=== PATIENT | female | born 1955 | race Caucasian/White ===

== ENCOUNTER → 2019-05-17 | Outpatient (CLI) | payer MEDICARE ==
--- NOTE | 2019-05-20 11:37 | MM ---
Reason for exam: additional evaluation requested from prior study. Last mammogram was performed 1 year and 1 month ago. History: Patient is postmenopausal, has history of breast cancer at age 62, and is nulliparous. Malignant US biopsy breast VAD RT of the right breast, April 13, 2017. 2 mastectomies of the right breast, 2017. 2 chemotherapies, 2017. 2 cyst aspirations of the left breast. Taking antineoplastic for 2 years beginning at age 62. Physical Findings: Nurse Summary: small pea size round movable nodule right axilla (nurse mj). MG 3D Diag Mammo W/Cad LT CC, MLO, LM, and spot compression MLO view(s) were taken of the left breast. Prior study comparison: April 23, 2018, left breast MG 3d diag mammo w/cad LT. April 13, 2017, right breast MG diagnostic mammo RT wo CAD. The breast tissue is heterogeneously dense. This may lower the sensitivity of mammography. Inferior central asymmetric density left MLO does not persist on spot 3D MLO or 3D lateral. These results were verbally communicated with the patient and result sheet given to the patient on 05/17/19. ASSESSMENT: Incomplete: need additional imaging evaluation, BI-RAD 0 RECOMMENDATION: Ultrasound. (right axillary palpable felt by the nurse)
--- NOTE | 2019-05-20 11:39 | USB ---
Reason for exam: additional evaluation requested from abnormal screening. History: Patient is postmenopausal, has history of breast cancer at age 62, and is nulliparous. Malignant US biopsy breast VAD RT of the right breast, April 13, 2017. 2 mastectomies of the right breast, 2017. 2 chemotherapies, 2017. 2 cyst aspirations of the left breast. Taking antineoplastic for 2 years beginning at age 62. US Breast Axilla RT Right limited breast ultrasound including focal area of concern, retroareolar and axilla demonstrates a 0.4 x 0.4cm round, solid possible node at the axilla. These results were verbally communicated with the patient and result sheet given to the patient on 05/17/19. ASSESSMENT: Suspicious, BI-RAD 4 RECOMMENDATION: Ultrasound core biopsy of the right breast. Called Dr. Garcia with mammographic findings and has scheduled an appointment for the patient for 06/05/19 at 3:[address] Reis. Right axilla biopsy scheduled for 05/24/19 at 10 o'clock. PRELIMINARY REPORT CALLED AND FAXED TO DR. REIS ON 05/17/19.
== END | disposition home or self-care (01) ==
LOC: MERGE 04-24 11:00 → RADMAMWWP 12:54
PROVIDERS: ATTEND Family Medicine
DX: R92.8 Other abnormal and inconclusive findings on diagnostic imaging of breast (principal)
CPT/HCPCS: 77065; 76642; G0279; 77061

== ENCOUNTER 2019-05-22 08:22 | Day surgery (SDC) | payer MEDICARE ==
[2019-05-22 09:13] VITALS: TEMP 98.2
[2019-05-22 11:10] VITALS: BP 129/81; PULSE 70; RESP 14
--- NOTE | 2019-05-22 11:46 | US ---
ULTRASOUND GUIDED CORE BIOPSY RIGHT AXILLARY LYMPH NODE: CLINICAL HISTORY: Abnormal ultrasound FINDINGS: The procedure was explained to the patient. The risks, complications, benefits and alternatives were discussed and any questions were answered. Informed consent was obtained. Patient was placed supin e on the ultrasound table and prepped and draped in the usual sterile fashion. Utilizing a 18 gauge needle, five passes were made into the requested right axillary lymph node. Clip was placed post proc edure. Patient was stable throughout the procedure. Pathology is pending. All elements of maximal barrier and sterile technique were utilized. IMPRESSION: 1. Successful ultrasound guided core biopsy right axillary lymph node.
== END 2019-05-22 10:45 | disposition home or self-care (01) ==
LOC: RADPROMAIN 08:22
PROVIDERS: ATTEND Surgery
DX: R94.8 Abnormal results of function studies of other organs and systems (principal); L90.5 Scar conditions and fibrosis of skin
CPT/HCPCS: 88305; 76942; 38505; A4648

== ENCOUNTER → 2019-11-18 | Outpatient (CLI) | payer MEDICARE ==
--- NOTE | 2019-11-18 11:15 | USB ---
Reason for exam: follow-up at short interval from prior study. History: Patient is postmenopausal, has history of breast cancer at age 62, and is nulliparous. Malignant US biopsy breast VAD RT of the right breast, April 13, 2017. 2 mastectomies of the right breast, 2017. 2 chemotherapies, 2017. 2 cyst aspirations of the left breast. Taking antineoplastic for 2 years beginning at age 62. Physical Findings: Nurse did not find any significant physical abnormalities on exam. US Breast Axilla RT Right breast axilla ultrasound demonstrates no cystic or solid lesion seen. Clip noted from prior biopsy. Morphologically normal appearing nonenlarged right axillary lymph nodes. These results were verbally communicated with the patient and result sheet given to the patient on 11/18/19. ASSESSMENT: Benign, BI-RAD 2 RECOMMENDATION: Routine screening mammogram of both breasts in 6 months. Back on schedule for May 2020.
== END | disposition home or self-care (01) ==
LOC: RADUSWWP 09:32
PROVIDERS: ATTEND Surgery
DX: C50.911 Malignant neoplasm of unspecified site of right female breast (principal)

== ENCOUNTER → 2019-11-29 | Outpatient (CLI) | payer MEDICARE ==
--- NOTE | 2019-11-29 15:52 | CTL ---
EXAMINATION TYPE: CT Low Dose Lung DATE OF EXAM ORDERED: 11/29/2019 HISTORY: . Lung cancer screening CT DLP: 50.[address] CTDI: 1.5 mGy Automated exposure control for dose reduction was used. SCREENING VISIT: Subsequent COMPARISON: 11/01/2018 TECHNIQUE: Low dose computed tomography scan was performed through the chest at 1 mm thick sections a nd reconstructed images in the coronal plane at [address] DIAGNOSTIC QUALITY: Satisfactory FINDINGS: LUNG NODULES: Present, detailed below: Previous reference lesion posterior lateral left lower lobe, series 4 image 232 measures 0.3 cm and a ppears stable. Subtle groundglass opacities in the posterior lateral right lung base measuring 1.4 cm. This appears to been present previously. Some stable apical thickening is present at the bilateral lung apices. Emphysematous blebs are along the medial lung apices. Some emphysematous changes present. LUNGS: COPD: Severity: Mild Fibrosis: Severity: None Lymph nodes: None Other findings: None RIGHT PLEURAL SPACE: Effusion: None Calcification: None Thickening: None Pneumothorax: None LEFT PLEURAL SPACE: Effusion: None Calcification: None Thickening: None Pneumothorax: None HEART: Heart Size: Normal Coronary calcification: Mild Pericardial effusion: None OTHER FINDINGS: Upper abdomen: Normal Bony thorax: Normal Supraclavicular region: Normal Other: Ascending thoracic aorta at the level the main pulmonary artery measures 3.9 cm. The main pul monary artery at the bifurcation measures 2.5 cm. IMPRESSION: 1. Probably benign findings. FOLLOW UP CT CHEST RECOMMENDATION: Yes, short-term. Follow-up chest CT in 6 months to reevaluate groundglass opacity right lung CT LUNG RAD: Lung rad 3
== END | disposition home or self-care (01) ==
LOC: RADCTMAIN 13:55
PROVIDERS: ATTEND Family Medicine
DX: Z12.2 Encounter for screening for malignant neoplasm of respiratory organs (principal); F17.210 Nicotine dependence, cigarettes, uncomplicated
CPT/HCPCS: 77080

== ENCOUNTER → 2020-07-07 | Outpatient (CLI) | payer MEDICARE ==
[2020-07-07 08:46] LABS: African American GFR (CKD) >90 (>60 ml/min/1.73 sqM); Blood Urea Nitrogen 10 mg/dL (7-17); Non-African American GFR(CKD) >90 (>60 ml/min/1.73 sqM)
--- NOTE | 2020-07-07 09:55 | CT ---
EXAMINATION TYPE: CT chest w con DATE OF EXAM: 07/07/2020 COMPARISON: Low-dose lung screening CT November 29, 2019 and older study November 01, 2018. HISTORY: Follow up prior abnormal CT CT DLP: 147.5 mGycm. Automated Exposure Control for Dose Reduction was Utilized. TECHNIQUE: CT scan of the thorax is performed following with IV Contrast, patient injected with 100 mL of Isovue 300. FINDINGS: LUNGS: Background Moderate underlying emphysematous changes are redemonstrated. Stable 1.2 cm focus o f groundglass opacity right lower lobe axial image 44. Few scattered micronodules redemonstrated. No new or enlarging greater than 4 mm pulmonary nodules. No pleural effusion or pneumothorax seen bilate rally. Mild linear scarring and/or atelectasis in the bases anteriorly near the diaphragm redemonstra adair. MEDIASTINUM: There are no greater than 1 cm hilar or mediastinal lymph nodes. No cardiomegaly or pe ricardial effusion is seen. Coronary artery calcification redemonstrated. Ascending aorta measures u p to 3.6 cm in diameter image 28 not significantly changed from prior studies. OTHER: Right breast noted surgically absent. Slight scoliotic curvature upper thoracic spine redemons trated. IMPRESSION: Overall stable findings, moderate emphysematous change without new or enlarging nodules.
== END | disposition home or self-care (01) ==
LOC: RADCTMAIN 07:38
PROVIDERS: ATTEND Family Medicine
DX: J43.9 Emphysema, unspecified (principal); Z72.0 Tobacco use
CPT/HCPCS: 82565; 84520; 71260; 36415; Q9967

== ENCOUNTER → 2020-08-04 | Outpatient (CLI) | payer MEDICARE ==
--- NOTE | 2019-11-29 15:32 | BD ---
EXAMINATION TYPE: Axial Bone Density DATE OF EXAM: 11/29/2019 COMPARISON: NONE CLINICAL HISTORY: M [age] Height: 63 IN Weight: 122 LBS FRAX RISK QUESTIONS: Alcohol (3 or more units per day): YES Family History (Parent hip fracture): YES MOTHER Secondary Osteoporosis: 3. Menopause before 45: PARTIAL HYST AGE 35 Current Tobacco Use: YES RISK FACTORS HISTORY OF: Family History of Osteoporosis: YES MOTHER Active: YES Postmenopausal woman: PARTIAL HYST AGE 35 MEDICATIONS: Thyroid Medications: YES Which medication: Levothyroxine How Lon+ YEARS Osteoporosis Medications: YES Which medication: Prolia How Lon YEAR Additional Medications: CALCIUM, PROLIA, THYROID MEDS, VIT D, PAXIL, HORMONE INHIBITOR ARIMIDEX Additional History: BREAST CANCER WITH CHEMO EXAM MEASUREMENTS: Bone mineral densitometry was performed using the [employer] System. Bone mineral density as measured about the Lumbar spine is: ----- L1-L4(G/cm2): 0.949 T Score Values are as follows: ----- L2: -2.7 ----- L3: -1.6 ----- L4: -1.6 ----- L1-L4: -1.9 Bone mineral density BASELINE Bone mineral density about the R hip (g/cm2): 0.603 Bone mineral density about the L hip (g/cm2): 0.629 T Score values are as follows: -----R Neck: -3.1 -----L Neck: -2.9 -----R Total: -2.5 -----L Total: -2.5 Bone mineral density BASELINE IMPRESSION: Osteoporosis (T Score less than -2.5). There is increased fracture risk and therapy is usually indicated based on age. Re-Screen 1-2 years. NOTE: T-SCORE=SD OF THE YOUNG ADULT MEAN.
--- NOTE | 2020-08-04 14:34 | MM ---
Reason for exam: additional evaluation requested from prior study. Last mammogram was performed 1 year and 3 months ago. History: Patient is postmenopausal, has history of breast cancer at age 62, and is nulliparous. Malignant US biopsy breast VAD RT of the right breast, April 13, 2017. 2 mastectomies of the right breast, 2017. 2 chemotherapies, 2017. 2 cyst aspirations of the left breast. Taking antineoplastic for 2 years beginning at age 62. Physical Findings: Nurse did not find any significant physical abnormalities on exam. MG 3D Diag Mammo W/Cad LT CC and MLO view(s) were taken of the left breast. Prior study comparison: May 17, 2019, left breast MG 3d diag mammo w/cad LT. April 23, 2018, left breast MG 3d diag mammo w/cad LT. The breast tissue is heterogeneously dense. This may lower the sensitivity of mammography. Focal asymmetry lower inner quadrant. No significant new findings when compared with previous films. These results were verbally communicated with the patient and result sheet given to the patient on 08/04/20. ASSESSMENT: Benign, BI-RAD 2 RECOMMENDATION: Follow-up diagnostic mammogram of the left breast in 1 year.
== END | disposition home or self-care (01) ==
LOC: RADMAMWWP 11-29 14:10
PROVIDERS: ATTEND Surgery
DX: Z08 Encounter for follow-up examination after completed treatment for malignant neoplasm (principal); Z85.3 Personal history of malignant neoplasm of breast
CPT/HCPCS: 77065; G0279; 77061; 77080

== ENCOUNTER → 2020-09-14 | Outpatient (CLI) | payer MEDICARE ==
[~2020-09-14] MED LIST: SODIUM CHLORIDE 0.9% 500 ML 500 ML in EMPTY BAG 1 BAG IV PRN; ZOLEDRONIC ACID 5 MG in SODIUM CHLORIDE 0.9% 100 ML IV NR
[2020-09-14 13:43] VITALS: BP 146/89; PULSE 77; RESP 16; TEMP 98.2
== END | disposition home or self-care (01) ==
LOC: PROCWHC3 13:23
PROVIDERS: ATTEND Internal Medicine Hematology & Oncology
DX: M81.0 Age-related osteoporosis without current pathological fracture (principal)
CPT/HCPCS: 96365; J3489

== ENCOUNTER → 2021-09-03 | Outpatient (CLI) | payer MEDICARE ==
--- NOTE | 2021-09-03 11:28 | MM ---
Reason for exam: additional evaluation requested from prior study. Last mammogram was performed 1 year and 1 month ago. History: Patient is postmenopausal, has history of breast cancer at age 62, and is nulliparous. Malignant US biopsy breast VAD RT of the right breast, April 13, 2017. 2 mastectomies of the right breast, 2017. 2 chemotherapies, 2017. 2 cyst aspirations of the left breast. Took hormonal contraceptives for 3 years. Taking antineoplastic for 3 years beginning at age 62. Physical Findings: Nurse did not find any significant physical abnormalities on exam. MG 3D Diag Mammo W/Cad LT CC and MLO view(s) were taken of the left breast. Prior study comparison: August 04, 2020, left breast MG 3d diag mammo w/cad LT. May 17, 2019, left breast MG 3d diag mammo w/cad LT. The breast tissue is heterogeneously dense. This may lower the sensitivity of mammography. There is chronic nodularity in the left breast. There is no dominant lesion. No significant new findings when compared with previous films. These results were verbally communicated with the patient and result sheet given to the patient on 09/03/21. ASSESSMENT: Benign, BI-RAD 2 RECOMMENDATION: Follow-up diagnostic mammogram of the left breast in 1 year.
== END | disposition home or self-care (01) ==
LOC: RADMAMWWP 10:40
PROVIDERS: ATTEND Obstetrics & Gynecology
DX: Z85.3 Personal history of malignant neoplasm of breast (principal); R92.2 Inconclusive mammogram; Z78.0 Asymptomatic menopausal state
CPT/HCPCS: 77065; G0279; 77061

== ENCOUNTER → 2021-09-28 | Outpatient (CLI) | payer MEDICARE ==
--- NOTE | 2021-09-28 11:47 | CTL ---
EXAMINATION TYPE: CT Low Dose Lung DATE OF EXAM ORDERED: 09/28/2021 HISTORY: . Lung cancer screening CT DLP: 49.[address] CTDI: 1.3 mGy Automated exposure control for dose reduction was used. SCREENING VISIT: COMPARISON: 11/29/2019 TECHNIQUE: Low dose computed tomography scan was performed through the chest at 1 mm thick sections a nd reconstructed images in multiple planes at 1 mm and [address] DIAGNOSTIC QUALITY: Satisfactory FINDINGS: Stable 3 mm left lower lobe nodule. There is biapical pleural thickening is diffuse percentage changes. There is a 1 mm nodule in the rig ht upper lobe laterally which is retrospectively stable. Subpleural less than 5 mm pulmonary nodules which are stable. There is an additional 3 mm nodule imag e 74 within the right upper lobe is irregular 3 mm density left upper lobe is nonspecific and likely inflammatory. Subsegmental consolidation involving the lungs with no pleural effusion or pneumothorax. Atherosclerotic change aorta. Heart size normal. Coronary artery calcification noted. Mild ectasia or aneurysmal dilation of the ascending aorta measuring 3.7 cm. Atherosclerotic changes aorta. Correlat e for previous right-sided breast surgery. IMPRESSION: 1. Diffuse COPD with multiple sub-5 mm nodules too small to characterize. 2. Ectasia of the thoracic aorta measuring 3.7 cm. 3. Coronary artery calcification. CT LUNG RAD AND CT CHEST RECOMMENDATION: Lung-Rad 2 Benign Appearance or Behavior: Continue annual sc reening with LDCT in 12 months.
== END | disposition home or self-care (01) ==
LOC: RADCTMAIN 11:07
PROVIDERS: ATTEND Internal Medicine Hematology & Oncology
DX: Z12.2 Encounter for screening for malignant neoplasm of respiratory organs (principal); J44.9 Chronic obstructive pulmonary disease, unspecified; I25.10 Atherosclerotic heart disease of native coronary artery without angina pectoris; R91.8 Other nonspecific abnormal finding of lung field; I77.810 Thoracic aortic ectasia
CPT/HCPCS: 71271

== ENCOUNTER → 2021-12-21 | Outpatient (CLI) | payer MEDICARE ==
[2021-12-21 11:12] VITALS: BP 126/82; PULSE 84; RESP 18; TEMP 98.4
== END ==
LOC: PROCWHC3 10:52
PROVIDERS: ATTEND Internal Medicine Hematology & Oncology
DX: M81.0 Age-related osteoporosis without current pathological fracture (principal); F17.200 Nicotine dependence, unspecified, uncomplicated; Z88.0 Allergy status to penicillin
CPT/HCPCS: 96365; J3489

== ENCOUNTER → 2021-12-23 | Outpatient (CLI) | payer MEDICARE ==
--- NOTE | 2021-12-23 17:16 | BD ---
EXAMINATION TYPE: Axial Bone Density DATE OF EXAM: 12/23/2021 COMPARISON: 11.29.2019 CLINICAL HISTORY: 66 YR OLD FEMALE......ICD-10 CODE: Z79.890 MENOPAUSAL Height: 63 Weight: 110 FRAX RISK QUESTIONS: Family History (Parent hip fracture): YES Secondary Osteoporosis: YES 3. Menopause before 45: YES Current Tobacco Use: YES RISK FACTORS HISTORY OF: Family History of Osteoporosis: YES, MOTHER FOR HIP FX Postmenopausal woman: YES, HYST AT AGE 37 AND MENOPAUSE FOLLOWED Lost more than 2 inches in height since high school: YES Poor Health: CANCER Hyperparathyroidism: NO Adrenal Insufficiency: NO MEDICATIONS: Thyroid Medications: YES, SYNTHROID FOR 20 + YRS Osteoporosis Medications: INFUSION FOR BONE DENSITY, RECENT, ON OSTEOPOROSIS MEDS FOR 18 YRS Additional Medications: PAXIL, MASTECTOMY, RT BREAST CHEMO, ANTI-HORMONE, CHOLESTEROL MEDS, CALCIUM A ND VIT D WHEN THINKS OF IT, Additional History: HX OF RT BREAST CANCER, CHEMO, ANTI-HORMONE, CHOLESTEROL, ANXIETY EXAM MEASUREMENTS: Bone mineral densitometry was performed using the GL 2ours System. Bone mineral density as measured about the Lumbar spine is: ----- L1-L4(G/cm2): 0.907 T Score Values are as follows: ----- L1: -2.6 ----- L2: -3.0 ----- L3: -2.1 ----- L4: -1.8 ----- L1-L4: -2.3 Bone mineral density has: Decreased -3.5% SINCE: 11.29.2019 STUDY Bone mineral density about the R hip (g/cm2): 0.681 Bone mineral density about the L hip (g/cm2): 0.682 T Score values are as follows: -----R Neck: -3.3 -----L Neck: -3.1 -----R Total: -2.6 -----L Total: -2.6 Bone mineral density has: Decreased -1.9% SINCE: 11.29.2019 STUDY FRAX%S: THERE IS A 42.9% CHANCE FOR A MAJOR OSTEOPOROTIC FX AND A 28.8% FOR HER HIPS.....PROBABI LITY FOR FX IN 10 YRS TIME IMPRESSION: Osteoporosis (T Score less than -2.5). There is increased fracture risk and therapy is usually indicated based on age. Re-Screen 1-2 years. NOTE: T-SCORE=SD OF THE YOUNG ADULT MEAN.
== END | disposition home or self-care (01) ==
LOC: RADBDWWP 09:33
PROVIDERS: ATTEND Internal Medicine Hematology & Oncology
DX: M81.0 Age-related osteoporosis without current pathological fracture (principal); C50.111 Malignant neoplasm of central portion of right female breast; Z79.890 Hormone replacement therapy
CPT/HCPCS: 77080

== ENCOUNTER 2022-08-02 10:23 | Day surgery (SDC) | payer MEDICARE ==
[2022-07-29 12:06] VITALS: BMI 19.3
[~2022-08-02 10:23] MED LIST changes: +LACTATED RINGERS 1,000 ML IV SCH; -SODIUM CHLORIDE 0.9% 500 ML 500 ML in EMPTY BAG 1 BAG IV PRN; -ZOLEDRONIC ACID 5 MG in SODIUM CHLORIDE 0.9% 100 ML IV NR
[2022-08-02 10:59] VITALS: TEMP 97.9
[2022-08-02] MEDS ORDERED: LIDOCAINE 1% (10MG/ML) FOR IV START INTRADERMA ONE (11:05)
[2022-08-02] MEDS ORDERED: PROPOFOL 10 MG/ML 20 ML VIAL IV ONE (11:29)
--- NOTE | 2022-08-02 11:32 | P.GSHP ---
History of Present Illness H&P Date: 08/02/22 Chief Complaint: Change in bowel habits 67-year-old female with personal history of breast cancer. She is here today for colonoscopy. She has had some recent intermittent diarrhea. Last colonoscopy many years ago. No rectal bleeding. Past Medical History Past Medical History: Cancer, COPD, Thyroid Disorder Additional Past Medical History / Comment(s): rt breast CA, wt loss and frequent diarrhea, History of Any Multi-Drug Resistant Organisms: None Reported Past Surgical History: Breast Surgery, Hysterectomy Additional Past Surgical History / Comment(s): RT masectomy, Past Anesthesia/Blood Transfusion Reactions: Previous Problems w/ Anesthesia Additional Past Anesthesia/Blood Transfusion Reaction / Comment(s): "i was told I stopped breathing during my breast surgery"- 4 yrs ago, Smoking Status: Current every day smoker - Past Family History Mother Family Medical History: No Reported History Medications and Allergies Home Medications Medication Instructions Recorded Confirmed Type Anastrozole [Arimidex] 1 mg PO DAILY 05/21/19 07/29/22 History Atorvastatin [Lipitor] 40 mg PO DAILY 07/29/22 07/29/22 History Levothyroxine Sodium [Synthroid] 75 mcg PO DAILY 07/29/22 07/29/22 History Multivit-Min/FA/Lycopen/Lutein 1 each PO DAILY 07/29/22 07/29/22 History [Centrum Silver Tablet] PARoxetine HCL [Paxil] 30 mg PO DAILY 07/29/22 07/29/22 History Allergies Allergy/AdvReac Type Severity Reaction Status Date / Time Penicillins Allergy Rash/Hives Verified 08/02/22 10:50 Surgical - Exam Vital Signs Temp Pulse Resp BP Pulse Ox 97.9 F 81 16 109/68 96 08/02/22 10:56 08/02/22 10:56 08/02/22 10:56 08/02/22 10:56 08/02/22 10:56 Physical exam: General: Well-developed, well-nourished HEENT: Normocephalic, sclerae nonicteric Abdomen: Nontender, nondistended Extremities: No edema Neuro: Alert and oriented Assessment and Plan (1) Change in bowel habits Narrative/Plan: Will proceed with colonoscopy at this time Current Visit: Yes Status: Acute Code(s): R19.4 - CHANGE IN BOWEL HABIT SNOMED Code(s): 294972091
--- NOTE | 2022-08-02 11:54 | P.PCN ---
Date of Procedure: 08/02/22 Procedure(s) Performed: PREOPERATIVE DIAGNOSIS: Change in bowel habits POSTOPERATIVE DIAGNOSIS: Diverticulosis PROCEDURE: Colonoscopy ANESTHESIA: MAC SURGEON: Cong Reis M.D. SPECIMENS: None ENDOSCOPIC PROCEDURE: The patient was placed on the endoscopy table in the left decubitus position. The Olympus colonoscope was inserted into the anus and passed under direct visualization to the base of the cecum. The appendiceal orifice was visualized. From that point the scope was slowly withdrawn inspe cting all surfaces carefully. There were no neoplastic inflammatory or polypoid lesions throughout the cecum, ascending, transverse, descending, sigmoid and rectum. There was mild left-sided diverticulosis noted. The patient had significant tortuosity. Digital rectal examination was normal. The patient was taken to the recovery room in stable condition per anesthesia guidelines. RECOMMENDATIONS: Resume diet. Repeat colonoscopy 10 years.
[2022-08-02 12:24] VITALS: BP 137/81; PULSE 65; RESP 20
== END 2022-08-02 12:46 ==
LOC: ORWHC2ENDO 10:23
PROVIDERS: ATTEND Surgery
DX: K57.30 Diverticulosis of large intestine without perforation or abscess without bleeding (principal); R19.4 Change in bowel habit; E78.5 Hyperlipidemia, unspecified; J44.9 Chronic obstructive pulmonary disease, unspecified; R63.0 Anorexia; E07.9 Disorder of thyroid, unspecified; F17.200 Nicotine dependence, unspecified, uncomplicated; Z85.3 Personal history of malignant neoplasm of breast; Z90.710 Acquired absence of both cervix and uterus; Z90.11 Acquired absence of right breast and nipple; Z79.890 Hormone replacement therapy; Z79.899 Other long term (current) drug therapy; Z88.0 Allergy status to penicillin
CPT/HCPCS: G0121; J2704; 45378

== ENCOUNTER → 2022-09-29 | Outpatient (CLI) | payer MEDICARE ==
--- NOTE | 2022-09-29 12:53 | CTL ---
EXAMINATION TYPE: CT Low Dose Lung DATE OF EXAM ORDERED: 09/29/2022 HISTORY: . Lung cancer screening CT DLP: [address] CTDI: 1.53 mGy Automated exposure control for dose reduction was used. SCREENING VISIT: COMPARISON: 09/28/2021 TECHNIQUE: Low dose computed tomography scan was performed through the chest at 1 mm thick sections a nd reconstructed images in multiple planes at 1 mm and [address] DIAGNOSTIC QUALITY: Satisfactory FINDINGS: Stable 3 mm left lower lobe nodule stable. There is biapical pleural thickening is diffuse percentage changes. There is a 1 mm nodule in the right upper lobe laterally which is retrospectively stable. Subpleural less than 5 mm pulmonary nodules which are stable. There is an additional 3 mm nodule with in the right upper lobe. There is a 3 mm density left upper lobe is nonspecific and likely inflammatory. Subsegmental consolidation involving the lungs with no pleural effusion or pneumothorax. Atherosclerotic change aorta. Heart size normal. Coronary artery calcification noted. Mild ectasia di lation of the ascending aorta measuring 3.7 cm. Stable Atherosclerotic changes aorta. Correlate for previous right-sided breast surgery. Emphysematous lan es are noted. Osseous structures intact. Question new subareolar density left breast IMPRESSION: 1. COPD with stable 5 mm less pulmonary nodules unchanged from prior exam. 2. Question new subareolar left breast density recommend follow-up mammogram. 3. Coronary artery calcification. CT LUNG RAD AND CT CHEST RECOMMENDATION: Lung-Rad 2 Benign Appearance or Behavior: Continue annual sc reening with LDCT in 12 months. S Modifier (other clinically significant findings): S
== END | disposition home or self-care (01) ==
LOC: RADCTMAIN 10:31
PROVIDERS: ATTEND Family Medicine
DX: Z12.2 Encounter for screening for malignant neoplasm of respiratory organs (principal); J44.9 Chronic obstructive pulmonary disease, unspecified; R91.8 Other nonspecific abnormal finding of lung field; I25.10 Atherosclerotic heart disease of native coronary artery without angina pectoris; Z87.891 Personal history of nicotine dependence
CPT/HCPCS: 71271

== ENCOUNTER → 2022-10-11 | Outpatient (CLI) | payer MEDICARE ==
--- NOTE | 2022-10-11 14:10 | MM ---
Reason for Exam: Follow-up at short interval from prior study. Last mammogram was performed 1 year(s) and 1 month(s) ago. Patient History: Menarche at age 11. Patient has no children. Left ovary removed at age 62. Right ovary removed at age 62. Hysterectomy at age 39. Postmenopausal. Breast cancer, age 62. Previous chemotherapy at age 62. Patient used Hormonal Contraceptives for 3 years. 2017, Mastectomy on the Right side. Cyst Aspiration on the Left side. Cyst Aspiration on the Left side. 2017, Mastectomy on the Right side. 04/13/2017, Malignant Core Biopsy on the right side. 2017, Chemotherapy. 2017, Chemotherapy. Prior Study Comparison: 05/17/2019 Left Diagnostic Mammogram, [facility]. 08/04/2020 Left Diagnostic Mammogram, [facility]. 09/03/2021 Left Diagnostic Mammogram, [facility]. Tissue Density: Left: The breast tissue is heterogeneously dense. This may lower the sensitivity of mammography. Findings: Analyzed By CAD. There are scattered punctate calcifications through the anterior left breast, stable from comparison. Parenchymal pattern appears stable. No new nodules or interlobular masses are evident. Chronic nodularity is in the upper outer aspect left breast. Overall Assessment: Benign, BI-RAD 2 Management: Screening Mammogram of the left breast in 1 year. A clinical breast exam by your physician is recommended on an annual basis and results should be correlated with mammographic findings. This exam should not preclude additional follow-up of suspicious palpable abnormalities. Results were given to the patient verbally at the time of exam. Electronically signed and approved by: Josesito Patel D.O. Radiologis
== END | disposition home or self-care (01) ==
LOC: RADMAMWWP 08:15
PROVIDERS: ATTEND Family Medicine
DX: R92.8 Other abnormal and inconclusive findings on diagnostic imaging of breast (principal); Z78.0 Asymptomatic menopausal state; Z85.3 Personal history of malignant neoplasm of breast; Z98.890 Other specified postprocedural states
CPT/HCPCS: 77065; G0279; 77061

== ENCOUNTER → 2022-11-16 | Outpatient (CLI) | payer MEDICARE ==
--- NOTE | 2022-11-16 14:13 | CT ---
EXAMINATION TYPE: CT abdomen pelvis wo con DATE OF EXAM: 11/16/2022 COMPARISON: 04/05/2017 HISTORY: 67-year-old female R30.0, right sided abdominal pain CT DLP: 214.7 mGycm. Automated exposure control for dose reduction was used. TECHNIQUE: Contiguous axial scanning of the abdomen and pelvis without IV contrast. Coronal and sagit kranthi reconstructions performed. FINDINGS: Heart normal size without pericardial effusion. Emphysematous change in the lower lungs. No pleural e ffusion. Noncontrast appearance of the liver, adrenal glands, kidneys, spleen, and pancreas show no gross abno rmality. There is an underlying 1.5 cm diverticulum of the duodenum projecting into the pancreatic he ad region. Numerous fluid-filled small bowel loops throughout. Some are borderline distended up to 2.9 cm. Addit ionally, there are some segments in the mid and lower abdomen and pelvis that show moderate wall thic kening and some surrounding mesenteric edema/fat stranding, Normal appendix. Liquid stool within the right side of the colon. Redundant sigmoid colon with sigmoid diverticulosis. No definite acute diverticulitis is seen. No mesenteric or retroperitoneal lymphadenopathy identified. Bladder is nondistended. Uterus surgically absent. Numerous pelvic fluids. Neither ovary is identifie d. No abnormal fluid collection seen in the pelvis or pelvic lymphadenopathy. Bones: Mild degenerative disc disease and facet arthropathy lower lumbar spine. IMPRESSION: 1. Numerous fluid-filled small bowel loops throughout. Some are borderline distended up to 2.9 cm. A dditionally, some segments in the mid and lower abdomen show moderate wall thickening and some surrou nding inflammation. Correlate for a moderate infectious or inflammatory enteritis. Corresponding liqu id stool/diarrheal state in the right side of the colon. 2. Sigmoid diverticulosis. No definite findings of acute diverticulitis. 3. Normal appendix.
== END | disposition home or self-care (01) ==
LOC: RADCTMAIN 11:57
PROVIDERS: ATTEND Family Medicine
DX: K63.89 Other specified diseases of intestine (principal); K57.30 Diverticulosis of large intestine without perforation or abscess without bleeding; R30.0 Dysuria; R10.31 Right lower quadrant pain; M54.50 Low back pain, unspecified
CPT/HCPCS: 74176

== ENCOUNTER → 2023-02-27 | Outpatient (CLI) | payer MEDICARE ==
[~2023-02-27] MED LIST changes: -LACTATED RINGERS 1,000 ML IV SCH; +SODIUM CHLORIDE 0.9% 500 ML 500 ML in EMPTY BAG 1 BAG IV PRN; +ZOLEDRONIC ACID 5 MG in SODIUM CHLORIDE 0.9% 100 ML IV NR
[2023-02-27 10:37] VITALS: BP 134/86; PULSE 70; RESP 16; TEMP 97.5
== END ==
LOC: PROCWHC3 10:13
PROVIDERS: ATTEND Internal Medicine
DX: C50.111 Malignant neoplasm of central portion of right female breast (principal); F17.200 Nicotine dependence, unspecified, uncomplicated; M81.0 Age-related osteoporosis without current pathological fracture; Z88.0 Allergy status to penicillin
CPT/HCPCS: 96365; J3489

== ENCOUNTER → 2023-07-25 | Outpatient (CLI) | payer MEDICARE ==
[2023-07-25 16:38] LABS: Basophils # (A) 0.08 X 10*3/uL (0.00-0.10); Basophils % (A) 0.9 %; Eosinophils # (A) 0.05 X 10*3/uL (0.04-0.35); Eosinophils % (A) 0.5 %; HCT 48.6 % (37.2-46.3); HGB 15.9 d/dL (12.0-15.0); Lymphocytes # (A) 2.28 X 10*3/uL (0.90-5.00); Lymphocytes % (A) 24.5 %; MCH 31.5 pg (27.0-32.0); MCHC 32.7 d/dL (32.0-37.0); MCV 96.2 FL (80.0-97.0); Mean Platelet Volume 8.5 FL (9.5-12.2); Monocytes # (A) 0.84 X 10*3/uL (0.20-1.00); NRBC Per 100 WBC 0 X 10*3/uL (0.00-0.01); Neutrophils % (A) 64.5 %; Platelet Count 427 X 10*3/uL (140-440); RBC 5.05 X 10*6/uL (4.10-5.20); RDW 12.9 % (11.5-14.5); WBC 9.31 X 10*3/uL (4.50-10.00)
[2023-07-25 16:58] LABS: ALT 10 U/L (8-44); AST 12 U/L (13-35); Albumin 3.7 d/dL (3.8-4.9); Albumin/Globulin Ratio 1.32 Ratio (1.60-3.17); Alkaline Phosphatase 116 U/L (41-126); Calcium 8.8 mg/dL (8.7-10.3); Carbon Dioxide 28.9 mmol/L (21.6-31.8); Chloride 100 mmol/L (96-109); Chol/HDL Ratio 2.81 Ratio; Globulin 2.8 d/dL (1.6-3.3); Glucose 85 mg/dL (70-110); LDL Cholesterol,Calculated 34.6 mg/dL (0.0-131.0); Potassium 3.9 mmol/L (3.5-5.5); Sodium 141 mmol/L (135-145); Total Bilirubin 0.6 mg/dL (0.3-1.2); Total Protein 6.5 d/dL (6.2-8.2); VLDL Calculation 16.86 mg/dL (5.00-40.00)
[2023-07-25 17:18] LABS: Hepatitis A Antibody IgM Nonreactive; Hepatitis B Core IgM Nonreactive; Hepatitis B Surface Antigen Nonreactive; Hepatitis C IgG Antibody Nonreactive
== END | disposition home or self-care (01) ==
LOC: LABWHC1 08:53
PROVIDERS: ATTEND Family Medicine
DX: K52.9 Noninfective gastroenteritis and colitis, unspecified (principal); R63.4 Abnormal weight loss
CPT/HCPCS: 36415; 80053; 80061; 80074; 82306; 83036; 83516; 84443; 85025

== ENCOUNTER 2023-07-27 09:13 | Emergency (ER) | payer MEDICARE ==
[2023-07-27 09:58] LABS: ALT 13 U/L (4-34); AST 16 U/L (14-36); African American GFR (CKD) >90 (>60 ml/min/1.73 sqM); Albumin 3.3 g/dL (3.5-5.0); Alkaline Phosphatase 107 U/L (38-126); Anion Gap 8 mmol/L; Blood Urea Nitrogen 11 mg/dL (7-17); Calcium 8.7 mg/dL (8.4-10.2); Carbon Dioxide 31 mmol/L (22-30); Chloride 99 mmol/L (98-107); Glucose 95 mg/dL (74-99); Non-African American GFR(CKD) 83 (>60 ml/min/1.73 sqM); Potassium 3.3 mmol/L (3.5-5.1); Sodium 138 mmol/L (137-145); Total Bilirubin 0.8 mg/dL (0.2-1.3); Total Protein 6.8 g/dL (6.3-8.2)
[2023-07-27 10:03] LABS: Appearance,Urine Clear (Clear); Bacteria,Urine Rare /hpf; Bilirubin,Urine Negative (Negative); Blood,Urine Trace (Negative); Color,Urine Yellow; Glucose,Urine (UA) Negative (Negative); Granular Casts,Urine 1 /lpf (0); Hyaline Casts,Urine 1 /lpf (0-2); Ketones,Urine Negative (Negative); Leukocyte Esterase,Urine Small (Negative); Mucus,Urine Many /hpf; Nitrite,Urine Negative (Negative); PH, Urine 5.5 (5.0-8.0); Protein,Urine 1+ (Negative); RBC,Urine 3 /hpf (0-5); Specific Gravity,Urine 1.023 (1.001-1.035); Squamous Epithelial Cell,Urine 1 /hpf (0-4); WBC,Urine 5 /hpf (0-5)
[2023-07-27 10:06] LABS: Basophils % (A) 0 %; Eosinophils % (A) 0 %; HCT 49.1 % (34.0-46.0); HGB 16.7 gm/dL (11.4-16.0); Lymphocytes # (A) 2.2 k/uL (1.0-4.8); Lymphocytes % (A) 16 %; MCH 32.4 pg (25.0-35.0); MCHC 33.9 g/dL (31.0-37.0); MCV 95.5 fL (80.0-100.0); Mean Platelet Volume 6.8; Monocytes # (A) 0.8 k/uL (0-1.0); Monocytes % (A) 6 %; Neutrophils # (A) 10.4 k/uL (1.3-7.7); Neutrophils % (A) 77 %; Platelet Count 409 k/uL (150-450); RBC 5.14 m/uL (3.80-5.40); RDW 12.4 % (11.5-15.5); WBC 13.5 k/uL (3.8-10.6)
--- NOTE | 2023-07-27 10:06 | ED ---
Weakness HPI - General Source: patient, RN notes reviewed Mode of arrival: ambulatory Limitations: no limitations <Lowlel Pittman - Last Filed: 07/27/23 10:05> <Rebekah Kwan - Last Filed: 07/30/23 16:29> - General Chief complaint: Weakness Stated complaint: weakness/vomiting Time Seen by Provider: 07/27/23 10:05 - History of Present Illness Initial comments: 68-year-old female presents emergency departments for evaluation of petition weakness. Patient has been very fatigued, neck and throughout the day which is abnormal. Patient complained the mid to lower abdominal pain. Patient has a history of breast cancer. Patient denies any dysuria hematuria she has had slight nausea she also complains of some mild back aching this. (Lowell Pittman) 68 year old female with history of breast cancer in remission who presents with lower abdominal cramping and low back pain. No saddle anesthesia. Patient has had nausea and vomiting for the past 2 days. Has had dysuria without hematuria. No fevers. Had chronic diarrhea. No black or bloody stools. Denies fevers. No sick contacts. Breast cancer is in remission. No other alleviating, precipitating or modifying factors. (Rebekah Kwan) - Related Data Home Medications Medication Instructions Recorded Confirmed Anastrozole [Arimidex] 1 mg PO DAILY 05/21/19 07/27/23 Atorvastatin [Lipitor] 40 mg PO DAILY 07/29/22 07/27/23 Levothyroxine Sodium [Synthroid] 75 mcg PO DAILY 07/29/22 07/27/23 PARoxetine HCL [Paxil] 30 mg PO DAILY 07/29/22 07/27/23 Previous Rx's Medication Instructions Recorded Cephalexin [Keflex] 500 mg PO BID #14 cap 07/27/23 Allergies Allergy/AdvReac Type Severity Reaction Status Date / Time Penicillins Allergy Rash/Hives Verified 07/27/23 12:46 Review of Systems ROS Other: All systems not noted in ROS Statement are negative. <Lowell Pittman - Last Filed: 07/27/23 10:05> ROS Other: All systems not noted in ROS Statement are negative. <Rebekah Kwan - Last Filed: 07/30/23 16:29> ROS Statement: Those systems with pertinent positive or pertinent negative responses have been documented in the HPI. Past Medical History Past Medical History: Cancer, COPD, Thyroid Disorder Additional Past Medical History / Comment(s): rt breast CA, wt loss and frequent diarrhea, History of Any Multi-Drug Resistant Organisms: None Reported Past Surgical History: Breast Surgery, Hysterectomy Additional Past Surgical History / Comment(s): RT masectomy, Past Anesthesia/Blood Transfusion Reactions: Previous Problems w/ Anesthesia Additional Past Anesthesia/Blood Transfusion Reaction / Comment(s): "i was told I stopped breathing during my breast surgery"- 4 yrs ago, Past Psychological History: Anxiety Smoking Status: Current every day smoker Past Alcohol Use History: Occasional Past Drug Use History: None Reported - Past Family History Mother Family Medical History: No Reported History <Lowell Pittman - Last Filed: 07/27/23 10:05> General Exam Limitations: no limitations <Lowell Pittman - Last Filed: 07/27/23 10:05> General appearance: alert, in no apparent distress Head exam: Present: atraumatic, normocephalic, normal inspection Eye exam: Present: normal appearance, PERRL, EOMI. Absent: scleral icterus, conjunctival injection, periorbital swelling ENT exam: Present: normal exam, mucous membranes moist Neck exam: Present: normal inspection. Absent: tenderness, meningismus, lymphadenopathy Respiratory exam: Present: normal lung sounds bilaterally. Absent: respiratory distress, wheezes, rales, rhonchi, stridor Cardiovascular Exam: Present: regular rate, normal rhythm, normal heart sounds. Absent: systolic murmur, diastolic murmur, rubs, gallop, clicks GI/Abdominal exam: Present: soft, tenderness (suprapubic), normal bowel sounds. Absent: distended, guarding, rebound, rigid Extremities exam: Present: normal inspection, full ROM, normal capillary refill. Absent: tenderness, pedal edema, joint swelling, calf tenderness Back exam: Present: normal inspection Neurological exam: Present: alert, oriented X3, CN II-XII intact Psychiatric exam: Present: normal affect, normal mood Skin exam: Present: warm, dry, intact, normal color. Absent: rash <Rebekah Kwan - Last Filed: 07/30/23 16:29> - General Exam Comments Initial Comments: Visual Physical Exam Vital signs reviewed General: Well-appearing, nontoxic, no acute distress. Head: Normocephalic, atraumatic Eyes: PERRLA, EOMI ENT: Airway patent Chest: Nonlabored breathing Skin: No visual rash, normal skin tone Neuro: Alert and oriented 3 Musculoskeletal: No gross abnormalities (Lowell Pittman) Course Vital Signs 07/27/23 07/27/23 09:34 12:52 Temperature 98.1 F 97.8 F Pulse Rate 91 74 Respiratory 16 18 Rate Blood Pressure 93/70 109/69 O2 Sat by Pulse 97 97 Oximetry Medical Decision Making - Lab Data Result diagrams: 07/27/23 09:38 <Lowell Pittman - Last Filed: 07/27/23 10:05> - Lab Data Result diagrams: 07/27/23 09:38 07/27/23 09:38 <Rebekah Kwan - Last Filed: 07/30/23 16:29> - Medical Decision Making I performed a quick note portion of this chart signed Lowell Pittman PA-C (Lowell Pittman) Was pt. sent in by a medical professional or institution ([facility], [employer], urgent care, hospital, or long-term...) When possible be specific @ -No Did you speak to anyone other than the patient for history (EMS, parent, family, police, friend...)? What history was obtained from this source @ -Spoke with the patients niece Did you review nursing and triage notes (agree or disagree)? Why? @ -I reviewed and agree with nursing and triage notes Were old charts reviewed (outside hosp., previous admission, EMS record, old EKG, old radiological studies, urgent care reports/EKG's, long-term records)? Report findings @ -No old charts were reviewed Differential Diagnosis (chest pain, altered mental status, abdominal pain women, abdominal pain men, vaginal bleeding, weakness, fever, dyspnea, syncope, headache, dizziness, GI bleed, back pain, seizure, CVA, palpatations, mental health, musculoskeletal)? @ -gastroenteritis, covid, influenza, uti, recurrent cancer EKG interpreted by me (3pts min.). @ -Yes and demonstrates a paced rhythm. Rate of 83. DC interval 198. QRS 164. QTC of 459. Pacemaker captures appropriately. No acute ST segment elevation or depression X-rays interpreted by me (1pt min.). @ -None done CT interpreted by me (1pt min.). @ -yes and demonstrates no acute process. Ct completed because of abdominal pain/back pain with hx breast cancer U/S interpreted by me (1pt. min.). @ -None done What testing was considered but not performed or refused? (CT, X-rays, U/S, labs)? Why? @ -None What meds were considered but not given or refused? Why? @ -None Did you discuss the management of the patient with other professionals (professionals i.e. , PA, [employer], lab, RT, psych nurse, social work lecturer, last code striper, teacher, occupational medicine officer, case picker)? Give summary @ -No Was smoking cessation discussed for >3mins.? @ -No Was critical care preformed (if so, how long)? @ -No Were there social determinants of health that impacted care today? How? (Homelessness, low income, unemployed, alcoholism, drug addiction, transportation, low edu. Level, literacy, decrease access to med. care, usp, rehab)? @ -No Was there de-escalation of care discussed even if they declined (Discuss DNR or withdrawal of care, Hospice)? DNR status @ -No What co-morbidities impacted this encounter? (DM, HTN, Smoking, COPD, CAD, Cancer, CVA, ARF, Chemo, Hep., AIDS, mental health diagnosis, sleep apnea, morbid obesity)? @ -breast cancer Was patient admitted / discharged? Hospital course, mention meds given and route, prescriptions, significant lab abnormalities, going to OR and other pertinent info. @ -Upon arrival patient placed into hallway 23 bed. IV established. Patient given fluids. CT performed due to history of cancer with abd and back pain. CT negative for acute process. Spoke with patient who feels better. She is stable for discharge but needs to follow up with PCP. WIll be placed on antibiotics for suprapubic pain with abn ua. Return for any new or worsening symptoms. Patient agreeable and patient discharged in stable condition. Undiagnosed new problem with uncertain prognosis? @ -No Drug Therapy requiring intensive monitoring for toxicity (Heparin, Nitro, Insulin, Cardizem)? @ -No Were any procedures done? @ -No Diagnosis/symptom? @ -acute nausea and vomiting, acute suprapubic pain, acute back pain Acute, or Chronic, or Acute on Chronic? @ -acute Uncomplicated (without systemic symptoms) or Complicated (systemic symptoms)? @ -complicated Side effects of treatment? @ -No Exacerbation, Progression, or Severe Exacerbation? @ -No Poses a threat to life or bodily function? How? (Chest pain, USA, ME, pneumonia, PE, COPD, DKA, ARF, appy, cholecystitis, CVA, Diverticulitis, Homicidal, Suicidal, threat to staff... and all critical care pts) @ -No (Rebekah Kwan) - Lab Data Lab Results 07/27/23 07/27/23 07/27/23 Range/Units 09:38 09:38 09:38 WBC 13.5 H (3.8-10.6) k/uL RBC 5.14 (3.80-5.40) m/uL Hgb 16.7 H (11.4-16.0) gm/dL Hct 49.1 H (34.0-46.0) % MCV 95.5 (80.0-100.0) fL MCH 32.4 (25.0-35.0) pg MCHC 33.9 (31.0-37.0) g/dL RDW 12.4 (11.5-15.5) % Plt Count 409 (150-450) k/uL MPV 6.8 Neutrophils % 77 % Lymphocytes % 16 % Monocytes % 6 % Eosinophils % 0 % Basophils % 0 % Neutrophils # 10.4 H (1.3-7.7) k/uL Lymphocytes # 2.2 (1.0-4.8) k/uL Monocytes # 0.8 (0-1.0) k/uL Eosinophils # 0.0 (0-0.7) k/uL Basophils # 0.0 (0-0.2) k/uL Manual Slide Review Performed Sodium 138 (137-145) mmol/L Potassium 3.3 L (3.5-5.1) mmol/L Chloride 99 (98-107) mmol/L Carbon Dioxide 31 H (22-30) mmol/L Anion Gap 8 mmol/L BUN 11 (7-17) mg/dL Creatinine 0.74 (0.52-1.04) mg/dL Est GFR (CKD-EPI)AfAm >90 (>60 ml/min/1.73 sqM) Est GFR (CKD-EPI)NonAf 83 (>60 ml/min/1.73 sqM) Glucose 95 (74-99) mg/dL Plasma Lactic Acid Jaylen (0.7-2.0) mmol/L Calcium 8.7 (8.4-10.2) mg/dL Total Bilirubin 0.8 (0.2-1.3) mg/dL AST 16 (14-36) U/L ALT 13 (4-34) U/L Alkaline Phosphatase 107 (38-126) U/L Total Protein 6.8 (6.3-8.2) g/dL Albumin 3.3 L (3.5-5.0) g/dL Urine Color Yellow Urine Appearance Clear (Clear) Urine pH 5.5 (5.0-8.0) Ur Specific [place] 1.023 (1.001-1.035) Urine Protein 1+ H (Negative) Urine Glucose (UA) Negative (Negative) Urine Ketones Negative (Negative) Urine Blood Trace H (Negative) Urine Nitrite Negative (Negative) Urine Bilirubin Negative (Negative) Urine Urobilinogen 3.0 (<2.0) mg/dL Ur Leukocyte Esterase Small H (Negative) Urine RBC 3 (0-5) /hpf Urine WBC 5 (0-5) /hpf Ur Squamous Epith Cells 1 (0-4) /hpf Urine Bacteria Rare H (None) /hpf Hyaline Casts 1 (0-2) /lpf Granular Casts 1 (0) /lpf Urine Mucus Many H (None) /hpf 07/27/23 Range/Units 09:38 WBC (3.8-10.6) k/uL RBC (3.80-5.40) m/uL Hgb (11.4-16.0) gm/dL Hct (34.0-46.0) % MCV (80.0-100.0) fL MCH (25.0-35.0) pg MCHC (31.0-37.0) g/dL RDW (11.5-15.5) % Plt Count (150-450) k/uL MPV Neutrophils % % Lymphocytes % % Monocytes % % Eosinophils % % Basophils % % Neutrophils # (1.3-7.7) k/uL Lymphocytes # (1.0-4.8) k/uL Monocytes # (0-1.0) k/uL Eosinophils # (0-0.7) k/uL Basophils # (0-0.2) k/uL Manual Slide Review Sodium (137-145) mmol/L Potassium (3.5-5.1) mmol/L Chloride (98-107) mmol/L Carbon Dioxide (22-30) mmol/L Anion Gap mmol/L BUN (7-17) mg/dL Creatinine (0.52-1.04) mg/dL Est GFR (CKD-EPI)AfAm (>60 ml/min/1.73 sqM) Est GFR (CKD-EPI)NonAf (>60 ml/min/1.73 sqM) Glucose (74-99) mg/dL Plasma Lactic Acid Jaylen 1.6 (0.7-2.0) mmol/L Calcium (8.4-10.2) mg/dL Total Bilirubin (0.2-1.3) mg/dL AST (14-36) U/L ALT (4-34) U/L Alkaline Phosphatase (38-126) U/L Total Protein (6.3-8.2) g/dL Albumin (3.5-5.0) g/dL Urine Color Urine Appearance (Clear) Urine pH (5.0-8.0) Ur Specific [place] (1.001-1.035) Urine Protein (Negative) Urine Glucose (UA) (Negative) Urine Ketones (Negative) Urine Blood (Negative) Urine Nitrite (Negative) Urine Bilirubin (Negative) Urine Urobilinogen (<2.0) mg/dL Ur Leukocyte Esterase (Negative) Urine RBC (0-5) /hpf Urine WBC (0-5) /hpf Ur Squamous Epith Cells (0-4) /hpf Urine Bacteria (None) /hpf Hyaline Casts (0-2) /lpf Granular Casts (0) /lpf Urine Mucus (None) /hpf Disposition <Lowell Pittman - Last Filed: 07/27/23 10:05> Is patient prescribed a controlled substance at d/c from ED?: No Time of Disposition: 12:41 <Rebekah Kwan - Last Filed: 07/30/23 16:29> Clinical Impression: Nausea and vomiting, Hypokalemia, Abnormal urinalysis Disposition: HOME SELF-CARE Condition: Stable Instructions (If sedation given, give patient instructions): Gastroenteritis (ED) Additional Instructions: Start taking the antibiotics as directed. Drink and eat as much as possible. Follow up with your doctor and return for any new or worsening symptoms Prescriptions: Cephalexin [Keflex] 500 mg PO BID #14 cap Referrals: Noah Benitez MD [Primary Care Provider] - 1-2 days
[2023-07-27] MEDS ORDERED: POTASSIUM CHLORIDE ER 20 MEQ TAB.ER PO STA (11:13)
[2023-07-27] MEDS ORDERED: SODIUM CHLORIDE 0.9% 1,000 ML IV ONE (11:13)
--- NOTE | 2023-07-27 12:07 | CT ---
EXAMINATION TYPE: CT abdomen pelvis w con DATE OF EXAM: 07/27/2023 COMPARISON: 11/16/2022 HISTORY: Abdominal pain, back pain and weakness. Hx of breast cancer. CT DLP: 492.4 mGycm CONTRAST: CT scan of the abdomen and pelvis is performed without Oral Contrast and with IV Contrast, patient in jected with 100ml mL of Isovue 370. FINDINGS: LUNG BASES-: No visible nodule. No infiltrate. LIVER/GB: No calcified gallstones. No space occupying hepatic lesion. Biliary tree is of normal ca liber. PANCREAS: No inflammation. No distinct mass. SPLEEN: No splenic enlargement. No lesion seen. ADRENALS: No nodule. No thickening. KIDNEYS/BLADDER: No hydronephrosis. No nephrolithiasis. No distinct renal mass. Urinary bladder g rossly unremarkable. BOWEL: Appendix is poorly visualized. No inflammatory process is seen within the right lower quadrant . There is fluid distention of the stomach and small bowel with mild wall thickening seen diffusely w hich could reflect gastroenteritis. Fluid contents are also seen within the colon. Correlate for clin ical symptoms of diarrhea. GENITAL ORGANS: No gross abnormality. LYMPH NODES: No greater than 1cm abdominal or pelvic lymph nodes are appreciated. AORTA: No significant abnormality. OSSEOUS STRUCTURES: No significant abnormality is seen. OTHER: No significant additional abnormality is seen. IMPRESSION: 1. Correlate for gastroenteritis.
[2023-07-27 16:00] VITALS: BP 109/69; PULSE 74; RESP 18; TEMP 97.8
== END 2023-07-27 12:58 | disposition home or self-care (01) ==
LOC: EC 09:13
DX: E87.6 Hypokalemia (principal); R11.2 Nausea with vomiting, unspecified; R82.90 Unspecified abnormal findings in urine; R10.30 Lower abdominal pain, unspecified; M54.50 Low back pain, unspecified; J44.9 Chronic obstructive pulmonary disease, unspecified; F41.9 Anxiety disorder, unspecified; E07.9 Disorder of thyroid, unspecified; F17.200 Nicotine dependence, unspecified, uncomplicated; Z79.890 Hormone replacement therapy; Z79.899 Other long term (current) drug therapy; Z88.0 Allergy status to penicillin; Z85.3 Personal history of malignant neoplasm of breast
CPT/HCPCS: 36415; 80053; 83605; 85025; 81001; 74177; 99284; 96360; Q9967

== ENCOUNTER → 2023-10-02 | Outpatient (CLI) | payer MEDICARE ==
--- NOTE | 2023-10-02 11:27 | CTL ---
EXAMINATION TYPE: CT Low Dose Lung DATE OF EXAM: 10/02/2023 11:14 AM CLINICAL INDICATION:Female, 68 years old with history of F17.210 nicotine dependance; smoker , histor y of tobacco use. COMPARISON: 09/29/2022. TECHNIQUE: Multiple axial non-contrast scans were obtained from approximately the lung apices through the upper abdomen. Coronal and sagittal reformatted images were obtained. Low dose technique was uti lized. CT DLP: 41.1 mGycm, Automated exposure control for dose reduction was used. CT Contrast: Contrast used: None Oral contrast used: None FINDINGS: ======== Lack of intravenous contrast and low dose technique limits the evaluation of the vascular and soft ti ssue structures. LUNGS: No evidence of pulmonary fibrosis. No evidence of focal consolidation, pneumothorax or pleural effusion. Moderate centrilobular emphysema changes and paraseptal emphysema changes. Nodules: RUL: None. RML: None. RLL: None. STEPHANIE: Parenchymal density series 4 image 125 irregular shaped measuring 2 mm is stable LLL: None. AIRWAY: Patent and unremarkable. HEART: Size within normal limits. Mild to moderate coronary artery atherosclerosis. MEDIASTINUM: No gross evidence of adenopathy. VASCULATURE: No aortic aneurysm. Atherosclerosis of the arterial vasculature. MUSCULOSKELETAL: No acute osseous abnormalities SOFT TISSUES/LYMPH NODES: The right breast appears surgically absent. LOWER NECK: No significant findings. UPPER ABDOMEN: No significant findings. IMPRESSION: 1. No clinically significant pulmonary nodules. 2. Moderate emphysema. 3. Mild to moderate coronary artery atherosclerosis. CT LUNG RAD AND CT CHEST RECOMMENDATION: Lung-Rad 2 Benign Appearance or Behavior: Continue annual sc reening with LDCT in 12 months. S Modifier (other clinically significant findings): None Recommend smoking cessation (if current smoker), or continuation of smoking cessation (if prior smoke r). Annual screening for lung cancer with low-dose computed tomography is recommended in adults ages 55 to 77 years who have a 30 pack-year smoking history and currently smoke or have quit within the pa st 15 years. Screening should be discontinued once a person has not smoked for 15 years or develops a health problem that substantially limits life expectancy or the ability or willingness to have curat hoda lung surgery. Lung rads 2021 [email or web address]
== END | disposition home or self-care (01) ==
LOC: RADCTMAIN 10:50
PROVIDERS: ATTEND Family Medicine
DX: Z12.2 Encounter for screening for malignant neoplasm of respiratory organs (principal); F17.210 Nicotine dependence, cigarettes, uncomplicated; I25.10 Atherosclerotic heart disease of native coronary artery without angina pectoris; J43.2 Centrilobular emphysema
CPT/HCPCS: 71271

== ENCOUNTER → 2023-12-25 | Outpatient (CLI) | payer MEDICARE ==
--- NOTE | 2023-12-26 08:36 | MM ---
Reason for Exam: Screening (asymptomatic). Last mammogram was performed 1 year(s) and 3 month(s) ago. Patient History: Menarche at age 11. Patient has no children. Left ovary removed at age 62. Right ovary removed at age 62. Hysterectomy at age 39. Postmenopausal. Breast cancer, age 62. Previous chemotherapy at age 62. Patient used Hormonal Contraceptives for 3 years. 2017, Mastectomy on the Right side. Cyst Aspiration on the Left side. Cyst Aspiration on the Left side. 2017, Mastectomy on the Right side. 04/13/2017, Malignant Core Biopsy on the right side. 2017, Chemotherapy. 2017, Chemotherapy. Prior Study Comparison: 08/04/2020 Left Diagnostic Mammogram, [facility]. 09/03/2021 Left Diagnostic Mammogram, [facility]. 10/11/2022 Left MG 3D diag mammo w/cad LT, [facility]. Tissue Density: Left: The breast tissue is heterogeneously dense. This may lower the sensitivity of mammography. Findings: There is no suspicious group of microcalcifications or new suspicious mass. Benign-appearing calcifications left breast. Overall Assessment: Benign, BI-RAD 2 Management: Screening Mammogram of the left breast in [address] [facility] will attempt to contact patient to return for supplemental views and ultrasound if indicated. Patient should continue monthly self-breast exams. A clinical breast exam by your physician is recommended on an annual basis. This exam should not preclude additional follow-up of suspicious palpable abnormalities. Note on Deb scores and lifetime risk: 1. A Deb score greater than 3% is considered moderate risk. If this is the case, consider specialist referral to assess eligibility for a risk reducing agent. 2. If overall lifetime risk for the development of breast cancer is 20% or higher, the patient may qualify for future screening with alternating mammogram and breast MRI. Electronically signed and approved by: Jass Oliveira DO
== END | disposition home or self-care (01) ==
LOC: RADMAMWWP 10:35
PROVIDERS: ATTEND Family Medicine
DX: Z12.31 Encounter for screening mammogram for malignant neoplasm of breast (principal); C50.911 Malignant neoplasm of unspecified site of right female breast; Z78.0 Asymptomatic menopausal state; Z80.3 Family history of malignant neoplasm of breast
CPT/HCPCS: 77067

== ENCOUNTER → 2023-12-25 | Outpatient (CLI) | payer MEDICARE ==
--- NOTE | 2023-12-25 18:20 | BD ---
EXAMINATION TYPE: Axial Bone Density DATE OF EXAM: 12/25/2023 CLINICAL HISTORY: 68 years old Female. ICD-10 CODE: M81.0 Osteoporosis Height: 64 Weight: 108.1 FRAX RISK QUESTIONS: Alcohol (3 or more units per day): no Family History (Parent hip fracture): yes Glucocorticoids (More than 3mos): no (Ex: prednisone, prednisolone, methylprednisolone, dexamethasone, and hydrocortisone). History of Fracture in Adulthood: no Secondary Osteoporosis: 1. Type 1 Diabetes: no 2. Hyperthyroidism: no 3. Menopause before 45: yes 4. Malnutrition: no 5. Chronic liver disease: no Rheumatoid Arthritis: no Current Tobacco Use: yes RISK FACTORS HISTORY OF: Surgery to Spine/Hip(right/left)/Wrist (right/left): no MEDICATIONS: Thyroid Medications: synthroid How Lon years Osteoporosis Medications: yes/ infusion EXAM MEASUREMENTS: Bone mineral densitometry was performed using the [employer] System. Bone mineral density as measured about the Lumbar spine is: ----- L1-L4(G/cm2): 0.898 T Score Values are as follows: ----- L1: -3.0 ----- L2: -3.1 ----- L3: -1.8 ----- L4: -1.9 ----- L1-L4: -2.4 Z Score Values are as follows: ----- L1: -0.8 ----- L2: -0.9 ----- L3: 0.4 ----- L4: 0.3 ----- L1-L4: -0.1 Bone mineral density has: decreased -1.0 % since study of: 12.23.2021 Bone mineral density about the R hip (g/cm2): 0.660 Bone mineral density about the L hip (g/cm2): 0.669 T Score values are as follows: -----R Neck: -3.3 -----L Neck: -3.2 -----R Total: -28 -----L Total: -2.7 Z Score values are as follows: -----R Neck: -1.2 -----L Neck: -1.1 -----R Total: -0.9 -----L Total: -0.8 Bone mineral density has: decreased -2.5 % since study of: 2.10.2021 FRAX%s: The graph provided illustrates a 37.5% chance for a major osteoporotic fx and a 26.6% chance for the hips probability for fx in 10 years time. IMPRESSION: Osteoporosis (T Score less than -2.5). There is increased fracture risk and therapy is usually indicated based on age. Re-Screen 1-2 years. NOTE: T-SCORE=SD OF THE YOUNG ADULT MEAN.
== END | disposition home or self-care (01) ==
LOC: RADBDWWP 10:33
PROVIDERS: ATTEND Internal Medicine Hematology & Oncology
DX: C50.111 Malignant neoplasm of central portion of right female breast (principal); M81.0 Age-related osteoporosis without current pathological fracture; M85.89 Other specified disorders of bone density and structure, multiple sites; E03.8 Other specified hypothyroidism; Z78.0 Asymptomatic menopausal state; Z17.0 Estrogen receptor positive status [ER+]
CPT/HCPCS: 77080

== ENCOUNTER → 2024-02-19 | Outpatient (CLI) | payer MEDICARE ==
[2024-02-19] MEDS: DENOSUMAB 60 MG/ML 1 ML SYRINGE SQ NR (12:10)
[2024-02-19 12:20] VITALS: BP 124/88; PULSE 64; RESP 16; TEMP 97.5
== END ==
LOC: PROCWHC3 11:43
PROVIDERS: ATTEND Family Medicine
DX: M81.0 Age-related osteoporosis without current pathological fracture (principal)
CPT/HCPCS: 96372; J0897

== ENCOUNTER → 2024-05-28 | Outpatient (CLI) | payer MEDICARE ==
--- NOTE | 2024-05-28 11:03 | XR ---
EXAMINATION TYPE: XR chest 2V DATE OF EXAM: 05/28/2024 COMPARISON: 10/10/2017 HISTORY: 69-year-old female R10.13, epigastric pain TECHNIQUE: Frontal and lateral views FINDINGS: Heart normal size. Aorta and pulmonary vasculature within normal limits. Hyperinflation. There is ariel e slight silhouetting of the posterior leaves of the hemidiaphragms on the lateral view. No other con solidation or pleural effusion seen. IMPRESSION: COPD with some possible minimal atelectasis or early airspace disease at the posterior lung bases on the lateral view. Correlate with symptoms.
== END | disposition home or self-care (01) ==
LOC: RADXRMAIN 10:24
PROVIDERS: ATTEND Family Medicine
DX: J44.9 Chronic obstructive pulmonary disease, unspecified (principal)
CPT/HCPCS: 71046

== ENCOUNTER → 2024-06-10 | Outpatient (CLI) | payer MEDICARE ==
--- NOTE | 2024-06-10 14:17 | XR ---
EXAMINATION TYPE: XR chest 2V DATE OF EXAM: 06/10/2024 12:28 PM CLINICAL INDICATION:Female, 69 years old with history of J44.9 CHRONIC OBSTRUCTIVE PULMONARY DISEASE, UNSPE; [facility] COMPARISON: Chest radiographs from 05/28/2024 TECHNIQUE: XR chest 2V Frontal view of the chest. FINDINGS: Lungs/Pleura: Posterior costophrenic angle is clear and lateral view. There is flattening of the diap hragm with increased lucency of the lungs. No evidence of pneumothorax, pleural effusion or focal con solidation. Pulmonary vascularity: Unremarkable. Heart/mediastinum: Cardiomediastinal silhouette is unremarkable. Musculoskeletal: No acute osseous pathology. IMPRESSION: 1. No acute cardiopulmonary disease process. 2. COPD changes.
== END | disposition home or self-care (01) ==
LOC: RADXRMAIN 12:15
PROVIDERS: ATTEND Family Medicine
DX: J44.9 Chronic obstructive pulmonary disease, unspecified (principal)
CPT/HCPCS: 71046

== ENCOUNTER → 2024-08-21 | Outpatient (CLI) | payer MEDICARE ==
[2024-08-21 13:21] VITALS: BP 105/72; PULSE 67; RESP 16; TEMP 97.5
[2024-08-21] MEDS: DENOSUMAB 60 MG/ML 1 ML SYRINGE SQ NR (13:22)
== END ==
LOC: PROCWHC3 12:49
PROVIDERS: ATTEND Family Medicine
DX: M81.0 Age-related osteoporosis without current pathological fracture (principal)
CPT/HCPCS: 96372

== ENCOUNTER → 2024-08-22 | Outpatient (CLI) | payer MEDICARE ==
[2024-08-22 19:51] LABS: Alpha Fetoprotein, Tumor Mkr <3.00 ng/mL (0.00-7.90); Ceruloplasmin 36.3 mg/dL (20.0-60.0)
== END | disposition home or self-care (01) ==
LOC: LABWHC1 11:54
PROVIDERS: ATTEND Family Medicine
DX: R16.0 Hepatomegaly, not elsewhere classified (principal)
CPT/HCPCS: 36415; 82105; 82390

== ENCOUNTER → 2024-09-04 | Outpatient (CLI) | payer MEDICARE ==
[2024-09-05 00:10] LABS: Gliadin AB IgA, Deaminated Negative (Negative); Gliadin AB IgA, Unit 1.4 U/mL; Gliadin AB IgG, Deaminated Negative (Negative); Gliadin AB IgG, Unit <0.4 U/mL
== END | disposition home or self-care (01) ==
LOC: LABWHC1 15:16
PROVIDERS: ATTEND Family Medicine
DX: K29.80 Duodenitis without bleeding (principal)
CPT/HCPCS: 36415; 83516

== ENCOUNTER → 2025-01-15 | Outpatient (CLI) | payer MEDICARE ==
--- NOTE | 2025-01-15 15:08 | MM ---
Reason for Exam: Screening (asymptomatic). Last mammogram was performed 1 year(s) and 1 month(s) ago. Patient History: Menarche at age 11. Patient has no children. Left ovary removed at age 62. Right ovary removed at age 62. Hysterectomy at age 39. Postmenopausal. Breast cancer, right, age 62. Previous chemotherapy at age 62. Patient used Hormonal Contraceptives for 3 years. 2017, Mastectomy on the Right side. Cyst Aspiration on the Left side. Cyst Aspiration on the Left side. 2017, Mastectomy on the Right side. 04/13/2017, Malignant Core Biopsy on the right side. 2017, Chemotherapy. 2017, Chemotherapy. Prior Study Comparison: 09/03/2021 Left Diagnostic Mammogram, [facility]. 10/11/2022 Left MG 3D diag mammo w/cad LT, [facility]. 12/25/2023 Left MG 3D scr [place]en unilateral w/cad., [facility]. Tissue Density: The breasts are heterogeneously dense, which may obscure small masses. Findings: Analyzed By CAD. Unchanged low axillary tail lymph node. Benign vascular and round calcifications. No significant change from prior exams. Overall Assessment: Benign, BI-RAD 2 Management: Screening Mammogram of the left breast in 1 year. Results were given to the patient verbally at the time of exam. Patient should continue monthly self-breast exams. A clinical breast exam by your physician is recommended on an annual basis. This exam should not preclude additional follow-up of suspicious palpable abnormalities. [facility], , 01/15/2025 3:05 PM. Electronically signed and approved by: Ynes Arndt M.D. Radiologist
== END | disposition home or self-care (01) ==
LOC: RADMAMWWP 09:54
PROVIDERS: ATTEND Family Medicine
DX: Z12.31 Encounter for screening mammogram for malignant neoplasm of breast (principal); R92.333 Mammographic heterogeneous density, bilateral breasts; Z78.0 Asymptomatic menopausal state; Z92.0 Personal history of contraception
CPT/HCPCS: 77067

== ENCOUNTER → 2025-03-03 | Outpatient (CLI) | payer MEDICARE ==
[2025-03-03 10:36] VITALS: BP 104/62; PULSE 89; RESP 16; TEMP 97.8
[2025-03-03] MEDS: DENOSUMAB 60 MG/ML 1 ML SYRINGE SQ NR (10:36)
== END ==
LOC: PROCWHC3 10:16
PROVIDERS: ATTEND Family Medicine
DX: M81.0 Age-related osteoporosis without current pathological fracture (principal)
CPT/HCPCS: 96372; J0897